=== PATIENT | male | born 1980 | race Two or more races ===

== ENCOUNTER 2020-12-04 05:06 | Day surgery (SDC) | payer OTHER ==
[2020-12-01 08:40] VITALS: BMI 27.2
[2020-12-04] MEDS ORDERED: MIDAZOLAM HCL 2 MG/2 ML SINGLE DOSE VIAL IVPUSH ONE (11:40)
[2020-12-04 16:29] VITALS: BP 126/94; PULSE 72; TEMP 98.6
== END 2020-12-04 16:00 | disposition home or self-care (01) ==
LOC: JRADIR 05:06
PROVIDERS: ATTEND Internal Medicine Nephrology
PROC: 0TB03ZX Excision of Right Kidney, Percutaneous Approach, Diagnostic (ICD-10-PCS; principal; 2020-12-04)
DX: I12.9 Hypertensive chronic kidney disease with stage 1 through stage 4 chronic kidney disease, or unspecified chronic kidney disease (principal); N18.9 Chronic kidney disease, unspecified; Z86.16 Personal history of COVID-19
CPT/HCPCS: 50200; 76098-TC-FY; 76942-TC; 87899; 88300-TC